=== PATIENT | female | born 1980 ===

== ENCOUNTER 2024-03-16 10:20 | Outpatient (RCR) | payer OTHER, SELFPAY | END 2024-05-09 11:11 | disposition home or self-care (01) | LOC: OT 10:20 | PROVIDERS: PCP Internal Medicine; Visit Provider Nurse Practitioner | DX: I62.9 Nontraumatic intracranial hemorrhage, unspecified (principal) | CPT/HCPCS: 97166; 97530; 97535 ==

== ENCOUNTER 2024-03-20 12:55 | Outpatient (RCR) | payer OTHER, SELFPAY | END 2024-07-10 08:48 | disposition home or self-care (01) | LOC: ST 12:55 | PROVIDERS: PCP Internal Medicine; Visit Provider Nurse Practitioner | DX: R47.01 Aphasia (principal) | CPT/HCPCS: 92507; 96105 ==

== ENCOUNTER 2024-03-22 13:10 | Outpatient (RCR) | payer OTHER, SELFPAY | END 2024-03-23 11:11 | disposition home or self-care (01) | LOC: PT 13:10 | PROVIDERS: PCP Internal Medicine; Visit Provider Nurse Practitioner | DX: I62.9 Nontraumatic intracranial hemorrhage, unspecified (principal) | CPT/HCPCS: 97110; 97161 ==